=== PATIENT | female | born 1970 | race Caucasian/White ===

== ENCOUNTER 2022-12-26 10:14 | Emergency (ER) | payer BC, OTHER ==
[~2022-12-26] VITALS: Ht 162 cm; Wt 62.0 kg
--- NOTE | 2022-12-26 14:38 | Diagnostic Imaging Report ---
PROCEDURE: CT head without contrast. TECHNIQUE: Multiple contiguous axial images were obtained through the brain without the use of intravenous contrast. Auto Exposure Controls were utilized during the CT exam to meet ALARA standards for radiation dose reduction. INDICATION: Facial paresthesia CT HEAD: CT images of the head were obtained. FINDINGS: Ventricles and sulci are within normal limits for size. There is no intracranial hemorrhage identified. There is no abnormal mass effect or shift of midline structures. IMPRESSION: Unremarkable CT of the head. Dictated by: Dictated on workstation # [id number]
[2022-12-26 15:37] LABS: BASOPHILS % (AUTO) 1 % (0-10); EOSINOPHILS # (AUTO) 0.2 10^3/uL (0.0-0.3); EOSINOPHILS % (AUTO) 5 % (0-10); HEMATOCRIT 42 % (35-52); HEMOGLOBIN 13.8 g/dL (11.5-16.0); LYMPHOCYTES # (AUTO) 1.5 10^3/uL (1.0-4.0); LYMPHOCYTES % (AUTO) 32 % (12-44); MEAN CORPUSCULAR HEMOGLOBIN 30 pg (25-34); MEAN CORPUSCULAR HGB CONC 33 g/dL (32-36); MEAN CORPUSCULAR VOLUME 93 fL (80-99); MEAN PLATELET VOLUME 8.6 fL (9.0-12.2); MONOCYTES # (AUTO) 0.3 10^3/uL (0.0-1.0); MONOCYTES % (AUTO) 6 % (0-12); NEUTROPHILS # (AUTO) 2.5 10^3/uL (1.8-7.8); NEUTROPHILS % (AUTO) 56 % (42-75); PLATELET COUNT 257 10^3/uL (130-400); WHITE BLOOD COUNT 4.6 10^3/uL (4.3-11.0)
[2022-12-26 15:39] LABS: FIBRIN DEGRADATION PRODUCTS 0.92 UG/ML (0.00-0.49); INR 0.8 (0.8-1.4); PROTHROMBIN TIME PATIENT 11.7 SEC (12.2-14.7)
[2022-12-26 15:43] LABS: ALBUMIN 4.4 GM/DL (3.2-4.5); BILIRUBIN,TOTAL 0.3 MG/DL (0.1-1.0); CALCIUM 9.5 MG/DL (8.5-10.1); CREATININE SERUM 0.53 MG/DL (0.60-1.30); TOTAL PROTEIN 8.5 GM/DL (6.4-8.2)
[2022-12-26 15:44] LABS: POTASSIUM 4.3 MMOL/L (3.6-5.0)
[2022-12-26 17:16] VITALS: BP 112/59
--- NOTE | 2022-12-26 18:57 | ED General ---
General Chief Complaint: General Problems/Pain Stated Complaint: RT ARM SWELLING; AMS Nursing Triage Note: Patient has presented to ER with cc of righ arm swelling and redness that started last night. She was seen in the clnic this morning at [facility] and had an ultra sound in the clinic and was told that she did not have a blood clot. She reports that morning she started to feel something funny on the right side of her face. She is very concerned and came to ER for evaluation. History of Present Illness Date Seen by Provider: December 26, 2022 Time Seen by Provider: 10:30 Initial Comments 52-year-old female with PMH of breast cancer that has been treated with chemo and radiation recently, has come here from the urgent care with complaints of right upper extremity swelling which began today morning. Patient had an ultrasound done at the urgent care which will be faxed to the ER shortly. Patient also complains that she started having tingling in the right side of her face on the way to the ER. Denies headache, blurry vision, fever and chills, shortness of breath, chest pain, palpitations. Later patient also reports that her cat bit her on the wrist last night. No bleeding. Allergies and Home Medications Patient Home Medication List Home Medication List Reviewed: Yes Review of Systems Review of Systems Constitutional: no symptoms reported EENTM: no symptoms reported Respiratory: no symptoms reported Cardiovascular: no symptoms reported Gastrointestinal: no symptoms reported Genitourinary: no symptoms reported Musculoskeletal: muscle pain Skin: see HPI Psychiatric/Neurological: No Symptoms Reported Hematologic/Lymphatic: No Symptoms Reported Immunological/Allergic: no symptoms reported Past Wgcaqjy-Csihbt-Iniybb Hx Patient Social History Tobacco Use?: No Use of E-Cig and/or Vaping dev: No Substance use?: No Alcohol Use?: No Pt feels they are or have been: No Physical Exam Vital Signs Vital Signs - First Documented 12/26/22 17:16 Temp 36.9 Pulse 78 Resp 16 B/P (MAP) 112/59 (76) Pulse Ox 100 O2 Delivery Room Air Capillary Refill : Height, Weight, BMI Height: '" Weight: lbs. oz. kg; 23.00 BMI Method: General Appearance: No Apparent Distress, WD/WN HEENT: PERRL/EOMI Neck: Full Range of Motion, Normal Inspection, Non Tender, Supple Respiratory: Chest Non Tender, Lungs Clear, Normal Breath Sounds, No Accessory Muscle Use Cardiovascular: Regular Rate, Rhythm, No Edema Gastrointestinal: Non Tender, Soft Extremity: Normal Range of Motion, Non Tender, Swelling (Right upper extremity swelling from shoulder to wrist with mild redness. It is not warm to touch. N /V bundle intact) Neurologic/Psychiatric: Alert, Oriented x3, No Motor/Sensory Deficits, Normal Mood/Affect, leaf conditioner II-XII Norm as Tested Skin: Erythema (Of right upper extremity), Other (Small puncture charles from the cat bite on the flexor surface of the wrist that is the size of a poppyseed. No active bleeding extremely superficial) Lymphatic: No Adenopathy Progress/Results/Core Measures Suspected Sepsis SIRS Temperature: Pulse: 78 Respiratory Rate: 16 Laboratory Tests 12/26/22 10:53: White Blood Count 4.6 Blood Pressure 112 /59 Mean: 76 Laboratory Tests 12/26/22 10:53: Creatinine 0.53L, INR Comment 0.8, Platelet Count 257, Total Bilirubin 0.3 Results/Orders Lab Results Laboratory Tests Test 12/26/22 10:53 Range/Units White Blood Count 4.6 4.3-11.0 10^3/uL Red Blood Count 4.54 3.80-5.11 10^6/uL Hemoglobin 13.8 11.5-16.0 g/dL Hematocrit 42 35-52 % Mean Corpuscular Volume 93 80-99 fL Mean Corpuscular Hemoglobin 30 25-34 pg Mean Corpuscular Hemoglobin Concent 33 32-36 g/dL Red Cell Distribution Width 12.6 10.0-14.5 % Platelet Count 257 130-400 10^3/uL Mean Platelet Volume 8.6 L 9.0-12.2 fL Immature Granulocyte % (Auto) 0 % Neutrophils (%) (Auto) 56 42-75 % Lymphocytes (%) (Auto) 32 12-44 % Monocytes (%) (Auto) 6 0-12 % Eosinophils (%) (Auto) 5 0-10 % Basophils (%) (Auto) 1 0-10 % Neutrophils # (Auto) 2.5 1.8-7.8 10^3/uL Lymphocytes # (Auto) 1.5 1.0-4.0 10^3/uL Monocytes # (Auto) 0.3 0.0-1.0 10^3/uL Eosinophils # (Auto) 0.2 0.0-0.3 10^3/uL Basophils # (Auto) 0.0 0.0-0.1 10^3/uL Immature Granulocyte # (Auto) 0.0 0.0-0.1 10^3/uL Percent Immature Platelet Fraction 1.3 0.0-7.6 % Prothrombin Time 11.7 L 12.2-14.7 SEC INR Comment 0.8 0.8-1.4 Activated Partial Thromboplast Time 27 24-35 SEC D-Dimer 0.92 H 0.00-0.49 UG/ML Sodium Level 136 135-145 MMOL/L Potassium Level 4.3 3.6-5.0 MMOL/L Chloride Level 101 98-107 MMOL/L Carbon Dioxide Level 24 21-32 MMOL/L Anion Gap 11 5-14 MMOL/L Blood Urea Nitrogen 8 7-18 MG/DL Creatinine 0.53 L 0.60-1.30 MG/DL Estimat Glomerular Filtration Rate 113 BUN/Creatinine Ratio 15 Glucose Level 90 70-105 MG/DL Calcium Level 9.5 8.5-10.1 MG/DL Corrected Calcium 9.2 8.5-10.1 MG/DL Total Bilirubin 0.3 0.1-1.0 MG/DL Aspartate Amino Transf (AST/SGOT) 107 H 5-34 U/L Alanine Aminotransferase (ALT/SGPT) 166 H 0-55 U/L Alkaline Phosphatase 231 H 40-136 U/L Total Protein 8.5 H 6.4-8.2 GM/DL Albumin 4.4 3.2-4.5 GM/DL My Orders Orders - DUNG CARREON MD Ct Head Wo (12/26/22 ) Cbc With Automated Diff (12/26/22 10:53) Comprehensive Metabolic Panel (12/26/22 10:53) Fibrin Degradation Products (12/26/22 10:53) Protime With Inr (12/26/22 10:53) Partial Thromboplastin Time (12/26/22 10:53) Vital Signs/I&O 12/26/22 17:16 Temp 36.9 Pulse 78 Resp 16 B/P (MAP) 112/59 (76) Pulse Ox 100 O2 Delivery Room Air Capillary Refill : Blood Pressure Mean: 76 Progress Note : Progress Note 1. RIGHT UPPER EXTREMITY LYMPHEDEMA: -Ultrasound report from the urgent care was faxed over to the ER. It is normal and does not show any blood clots -D-dimer is slightly elevated at 0.92 - The patient's complete blood count (CBC) shows no significant leukocytosis, anemia or thrombocytopenia. -CMP: Liver enzymes are elevated, AST/ALT/alkaline phosphatase. Patient stated that this has been elevated since she had breast cancer treatment. -Discussed with patient's oncology BOILER INSPECTOR, Jen, at . BOILER INSPECTOR recommended not to do any imaging since patient just had a PET scan a couple of weeks ago which was negative. Advised to follow-up in oncology clinic for referral for lymphedema therapy with PT. -The patient was seen in the ED, and treated appropriately to presentation at a specific point in time. Patient is informed that there is a possibility that disease and illness can evolve and change in acuity rapidly or slowly after patient is discharged from the ER. Precautionary advice given to the patient for immediate return to ER if symptoms worsen or do not resolve, and to seek emergen cy care sooner rather than later. Pt also advised on the importance of PCP follow up and compliance with management and follow up plan with PCP and/or specialist, as this is part of the management plan. Pt verbally expressed understanding. 2. STROKE RULE OUT: - CT HEAD: no acute findings 3. CAT BITE OF RIGHT WRIST: -Augmentin every 12 hours for 7 days Departure Impression Primary Impression: Lymphedema of right upper extremity Additional Impression: Cat bite Qualified Codes: W55.01XA - Bitten by cat, initial encounter Disposition: HOME, SELF-CARE Condition: Stable Departure-Patient Inst. Ref[place]: [facility] [place] Primary Care Physician BASHIR RIGGS (PCP) Primary Care Physician Patient Instructions: Lymphedema (DC), Wound Care ED, Animal Bites (DC) Add. Discharge Instructions: -Augmentin every 12 hours for 7 days -Follow-up with oncology clinic soon as possible for lymphedema therapy referral All discharge instructions reviewed with patient and/or family. Voiced understanding. DUNG CARREON MD December 26, 2022 18:57
== END 2022-12-26 13:00 | disposition home or self-care (01) ==
LOC: EDUNIT# 10:14 → ER FS 10:17
DX: S61.551A Open bite of right wrist, initial encounter (principal); I89.0 Lymphedema, not elsewhere classified; R74.01 Elevation of levels of liver transaminase levels; R79.1 Abnormal coagulation profile; Z28.310 Unvaccinated for COVID-19; W55.01XA Bitten by cat, initial encounter
CPT/HCPCS: 36415; 70450; 80053; 85025; 85379; 85610; 85730